=== PATIENT | female | born 1960 | race Caucasian/White ===

== ENCOUNTER 2019-02-03 14:19 | Outpatient (CLI) | payer OTHER ==
[~2019-02-03 14:19] MED LIST: IBUPROFEN800 MG PO; SULFAMETHOXAZOL1 TA6
== END 2019-02-03 14:21 | disposition home or self-care (01) ==
LOC: LAB 14:19
DX: D64.89 Other specified anemias (principal); Z12.11 Encounter for screening for malignant neoplasm of colon; E03.8 Other specified hypothyroidism; N95.1 Menopausal and female climacteric states; I10 Essential (primary) hypertension; C51.9 Malignant neoplasm of vulva, unspecified; N30.00 Acute cystitis without hematuria; E83.51 Hypocalcemia; A64 Unspecified sexually transmitted disease; R97.8 Other abnormal tumor markers; R79.89 Other specified abnormal findings of blood chemistry

== ENCOUNTER 2019-02-03 14:23 | Outpatient (CLI) | payer OTHER | END 2019-02-03 14:25 | disposition home or self-care (01) | LOC: MAMO-SONO 14:23 | DX: Z12.31 Encounter for screening mammogram for malignant neoplasm of breast (principal); N60.11 Diffuse cystic mastopathy of right breast; N60.12 Diffuse cystic mastopathy of left breast; R10.2 Pelvic and perineal pain ==

== ENCOUNTER 2019-02-03 14:53 | Outpatient (CLI) | payer OTHER | END 2019-02-03 14:59 | disposition home or self-care (01) | LOC: NUCLEAR 14:53 | DX: M81.0 Age-related osteoporosis without current pathological fracture (principal) ==

== ENCOUNTER 2023-07-01 11:56 | Outpatient (CLI) | payer OTHER | END 2023-07-01 12:02 | disposition home or self-care (01) | LOC: MAMO-SONO 11:56 | PROVIDERS: ATTEND Obstetrics & Gynecology | DX: N60.11 Diffuse cystic mastopathy of right breast (principal); N60.12 Diffuse cystic mastopathy of left breast; Z12.31 Encounter for screening mammogram for malignant neoplasm of breast ==